=== PATIENT | female | born 1990 | race African-American/Black ===

== ENCOUNTER 2016-05-05 19:21 | Emergency (ER) | payer OTHER ==
--- NOTE | 2016-05-05 20:28 | PHYS DOC ---
Past Medical History Past Medical History: Asthma, Other Additional Past Medical Histor: chronic back pain Past Surgical History: No Surgical History Alcohol Use: None Drug Use: None Adult General Chief Complaint Chief Complaint: CHEST WALL PAIN HPI HPI Patient is a 25 year old female who presents with chest pain. Patient reports this morning she awoke with midsternal chest pain that she describes a sharp and constant. Pain suddenly improved when she stretches certain ways, however also increase in pain with certain movements. No shortness of breath. Has had similar episodes in the past that lasted shorter amount of time. She has not taken anything for symptoms prior to coming to ED. No other acute complaints. Review of Systems Review of Systems Constitutional: Denies fever or chills Eyes: Denies change in visual acuity or eye pain HENT: Denies nasal congestion or sore throat Respiratory: Denies cough or shortness of breath Cardiovascular: Chest pain GI: Denies abdominal pain, nausea, vomiting, bloody stools or diarrhea : Denies dysuria or hematuria Musculoskeletal: Denies back pain or joint pain Integument: Denies rash or skin lesions Neurologic: Denies headache, focal weakness or sensory changes Current Medications Current Medications Current Medications Medications (Trade) Dose Ordered Sig/Jessica Start Time Stop Time Status Last Admin Dose Admin Naproxen (Naprosyn) 500 mg 1X ONCE 05/05/16 20:30 05/05/16 20:31 DC 05/05/16 20:38 500 MG Allergies Allergies Allergies Coded Allergies Type Severity Reaction Last Updated Verified No Known Drug Allergies 09/03/13 No Physical Exam Physical Exam Constitutional: Well developed, well nourished, no acute distress, non-toxic appearance HENT: Normocephalic, atraumatic, bilateral external ears normal Eyes: EOMI, conjunctiva normal, no discharge Neck: Normal range of motion, no stridor Cardiovascular: Heart rate normal, regular rhythm, no murmur Lungs & Thorax: Bilateral breath sounds clear to auscultation; TTP over sternum Abdomen: Bowel sounds normal, soft, non-distended, no TTP Skin: Warm, dry, no erythema, no rash Extremities: No obvious deformity, no edema Neurologic: Alert and oriented X 3, no gross deficits noted Current Patient Data Vital Signs Vital Signs Date Time Temp Pulse Resp B/P Pulse Ox O2 Delivery O2 Flow Rate FiO2 05/05/16 21:55 72 20 153/72 100 Room Air 05/05/16 19:33 98.0 98.0 Lab Values Laboratory Tests Test 05/05/16 20:33 Urine Test Negative (NEG) EKG EKG EKG (my read): sinus rhythm, rate 74, normal axis, intervals wnl, no acute ischemic changes Radiology/Procedures Radiology/Procedures CXR (my read): No acute abnormality Course & Med Decision Making Course & Med Decision Making Pertinent Labs and Imaging studies reviewed. (See chart for details) Patient is 25-year-old female who presents with chest pain. Suspect costochondritis. Will check EKG, chest x-ray to evaluate. Dose of naproxen ordered for pain control. EKG and chest x-ray okay per my read. Discussed results with patient, who is feeling much better after the medication. Will discharge with prescription for same, instructions for follow-up, return precautions. Dragon Disclaimer Dragon Disclaimer This electronic medical record was generated, in whole or in part, using a voice recognition dictation system. Departure Departure Impression: Primary Impression: Chest wall pain Disposition: HOME, SELF-CARE Condition: IMPROVED Referrals: UNKNOWN PCP NAME (PCP) Patient Instructions: Costochondritis Additional Instructions: Thank you for allowing us to provide care today in the Emergency Department. Take the provided medication as directed. Schedule a follow up appointment with your primary care doctor. Return promptly to the Emergency Department if you develop any new or concerning symptoms. Scripts Naproxen 375 Mg [id number] Mg PO BID PRN PAIN #20 Prov:NANCY ELMORE MD 05/05/16 NANCY ELMORE MD May 05, 2016 20:28
[2016-05-05] MEDS ORDERED: NAPROXEN 500 MG TABLET PO ONE (20:30)
[2016-05-05 20:46] LABS: NEG OBC UR NEG; POS OBC UR POS
[2016-05-05] MEDS ORDERED: NAPR375T3 PO (21:34)
[2016-05-05 21:55] VITALS: BP 153/72
--- NOTE | 2016-05-06 08:50 | RAD ---
Chest, 2 views, 05/05/2016: History: Chest pain The heart size and pulmonary vascularity are normal. The lungs are clear. There is no evidence of pleural fluid. IMPRESSION: No acute cardiopulmonary abnormality is detected.
--- NOTE | 2016-05-06 12:11 | EKG ---
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
== END 2016-05-05 21:55 | disposition home or self-care (01) ==
LOC: ER 19:21
DX: R07.89 Other chest pain (principal); J45.909 Unspecified asthma, uncomplicated; G89.29 Other chronic pain
CPT/HCPCS: 71020; 81025; 93005; 99284-25